=== PATIENT | female | born 1955 | race Asian ===

== ENCOUNTER 2017-02-19 18:06 | Emergency (ER) | payer OTHER ==
[~2017-02-19] VITALS: Ht 152.4 cm; Wt 59.0 kg
[2017-02-19 18:12] VITALS: Ht 152.4 cm; Wt 59.0 kg
--- NOTE | 2017-02-19 19:19 | ERA ---
ER Documentation Chief Complaint Date/Time DATE: 02/19/17 TIME: 19:19 Chief Complaint Complains of cough x 4 days Patient worried about dengue infection HPI The patient is a 61-year-old female, presenting to the ER because of intermittent cough for the last 5 days after she came back from [facility]. Her family member had dengue fever in [facility]; therefore she wanted to be checked for dengue fever. She never had any fever, denies headache, bone pain, eye pain, rash, joint pain. She denies chest pain, dyspnea, abdominal pain, vomiting, dysuria, diarrhea, constipation. She does not smoke nor drink Past medical history: Hypertension, chronic left upper extremity edema Past surgical history: Left mastectomy ROS All systems reviewed and are negative except as per history of present illness. Medications Home Meds Active Scripts Dextromethorphan Hb-Promethazine Hcl (Promethazine DM Syrup) 473 Ml Syrup, 10 ML PO Q6H Y for COUGH, #4 OZ Prov:OPAL FAIRBANKS MD 02/19/17 Azithromycin* (Zithromax*) 250 Mg Tablet, 250 MG PO .ZPACK DIRECTED, #6 TAB TAKE 500 MG (2 TABS) THE FIRST DAY THEN 250 MG (1 TAB) DAYS 2-5 Prov:OPAL FAIRBANKS MD 02/19/17 Allergies Allergies: Coded Allergies: No Known Allergy (Unverified , 02/19/17) Physical Exam Vitals Vital Signs Date Time Temp Pulse Resp B/P Pulse Ox O2 Delivery O2 Flow Rate FiO2 02/19/17 20:05 65 13 153/69 100 Room Air 02/19/17 19:44 71 22 98 21 02/19/17 19:37 60 17 188/66 100 Room Air 02/19/17 18:12 98.1 96 20 214/93 100 Physical Exam Const: No acute distress. Head: Atraumatic. Eyes: Normal Conjunctiva. ENT: Normal External Ears, Nose and Mouth. Neck: Full range of motion. No meningismus. Resp: Minimal expiratory wheezes Cardio: Regular rate and rhythm, no murmurs. Abd: Soft, non distended, normal bowel sounds, non tender. Skin: No petechiae or rashes. Back: No midline or flank tenderness. Ext: No cyanosis, or edema. Neur: Awake and alert. No focal deficit Psych: Normal Mood and Affect. Result Diagram: 02/19/17192902/19/171929 Results 24 hrs Laboratory Tests Test 02/19/17 19:30 White Blood Count 6.510^3/ul Red Blood Count 5.1410^6/ul Hemoglobin 15.7g/dl Hematocrit 47.5% Mean Corpuscular Volume 92.4fl Mean Corpuscular Hemoglobin 30.5pg Mean Corpuscular Hemoglobin Concent 33.1g/dl Red Cell Distribution Width 12.3% Platelet Count 69292^3/UL Mean Platelet Volume 10.5fl Neutrophils % 54.5% Lymphocytes % 35.8% Monocytes % 7.8% Eosinophils % 1.2% Basophils % 0.5% Nucleated Red Blood Cells % 0.0/100WBC Neutrophils # 3.510^3/ul Lymphocytes # 2.310^3/ul Monocytes # 0.510^3/ul Eosinophils # 0.110^3/ul Basophils # 0.010^3/ul Nucleated Red Blood Cells # 0.010^3/ul Prothrombin Time 11.6Sec Prothrombin Time Ratio 0.9 INR International Normalized Ratio 0.85 Activated Partial Thromboplast Time 29.6Sec Sodium Level 145mmol/L Potassium Level 3.1mmol/L Chloride Level 104mmol/L Carbon Dioxide Level 31mmol/L Anion Gap 13 Blood Urea Nitrogen 20mg/dl Creatinine 0.84mg/dl Glucose Level 121mg/dl Calcium Level 9.6mg/dl Total Bilirubin 0.3mg/dl Direct Bilirubin 0.00mg/dl Indirect Bilirubin 0.3mg/dl Aspartate Amino Transf (AST/SGOT) 46IU/L Alanine Aminotransferase (ALT/SGPT) 53IU/L Alkaline Phosphatase 134IU/L Total Protein 9.2g/dl Albumin 4.9g/dl Globulin 4.30g/dl Albumin/Globulin Ratio 1.13 Current Medications Medications (Trade) Dose Ordered Sig/[place]rera Route PRN Reason Start Time Stop Time Status Last Admin Dose Admin Ipratropium [place] (Atrovent 0.02% (Neb)) 0.5 mg ONCE ONCE INH 02/19/17 19:30 02/19/17 19:31 DC 02/19/17 19:43 Levalbuterol (Xopenex Neb) 1.25 mg ONCE ONCE HHN 02/19/17 19:30 02/19/17 19:31 DC 02/19/17 19:43 Potassium Chloride (Klor-Con 20) 40 meq ONCE STAT PO 02/19/17 20:32 02/19/17 20:33 DC Procedures/[place] [id number] Radiology Main Line: [phone] DIAGNOSTIC IMAGING REPORT Patient: DANA HYDE : 1955 Age: 61 Sex: F MR #: [id number] DOS: 02/19/171923 Ordering MD: OPAL FAIRBANKS MD Location: E/R Room/Bed: PROCEDURE: CHEST 1VW CLINICAL INDICATION: Shortness of breath TECHNIQUE: Single frontal view of the chest was obtained COMPARISON: None. FINDINGS: The cardiac size is normal. Aortic vascular calcifications are demonstrated. There is no pulmonary vascular congestion. The lungs are clear. No consolidation, effusion, or pneumothorax. Mild degenerative changes of the visualized osseous structures are visualized. IMPRESSION: 1. No acute cardiopulmonary process. 2. Atherosclerosis. RPTAT:PP .Michele Rubio MD, MD Date Time Electronically viewed and signed by .Michele Rubio MD, MD on 02/19/2017 20:28 .V/ CC: OPAL FAIRBANKS MD MEDICAL MAKING DECISION: The patient is a 61-year-old female, presenting with acute bronchitis, acute hypokalemia. She was treated with potassium chloride 40 mEq p.o. for low potassium. I do not suspect dengue fever. Her blood pressure improved The differential diagnoses considered include but are not limited to asthma, COPD, pneumonia, pulmonary embolus, pleural effusion, congestive heart failure. Departure Diagnosis: Primary Impression: Bronchitis Additional Impression: Hypokalemia Condition: Good Comments She was discharged with Zithromax and Phenergan DM I discussed the findings with the patient. I advised the patient to follow-up with the primary physician in about 1-2 days, sooner if needed and return if any concern. OPAL FAIRBANKS MD February 19, 2017 19:19
[2017-02-19] MEDS ORDERED: IPRATROPIUM (NEB) 0.5 MG/2.5 ML AMP INH ONE (19:30)
[2017-02-19] MEDS ORDERED: LEVALBUTEROL (NEB) 1.25 MG/0.5 ML AMP HHN ONE (19:30)
[2017-02-19 19:50] LABS: ADD SCAN DIFF NO
[2017-02-19 19:51] LABS: BASOPHILS % 0.5 % (0.0-2.0); EOSINOPHILS # 0.1 10^3/ul (0.0-0.5); EOSINOPHILS % 1.2 % (0.0-7.0); HEMATOCRIT 47.5 % (37.0-47.0); HEMOGLOBIN 15.7 g/dl (12.0-16.0); LYMPHOCYTES # 2.3 10^3/ul (0.8-2.9); LYMPHOCYTES % 35.8 % (15.0-51.0); MEAN CORPUSCULAR HEMOGLOBIN 30.5 pg (29.0-33.0); MEAN CORPUSCULAR HGB CONC 33.1 g/dl (32.0-37.0); MEAN CORPUSCULAR VOLUME 92.4 fl (82.0-101.0); MEAN PLATELET VOLUME 10.5 fl (7.4-10.4); MONOCYTE # 0.5 10^3/ul (0.3-0.9); MONOCYTES % 7.8 % (0.0-11.0); NEUTROPHIL # 3.5 10^3/ul (1.6-7.5); NEUTROPHILS % 54.5 % (39.0-77.0); PLATELET COUNT 222 10^3/UL (140-415); RED BLOOD COUNT 5.14 10^6/ul (4.20-5.40); RED CELL DISTRIBUTION WIDTH 12.3 % (11.5-14.5); WHITE BLOOD COUNT 6.5 10^3/ul (4.8-10.8)
[2017-02-19 20:05] VITALS: BP 153/69; PULSE 65; RESP 13
[2017-02-19 20:08] LABS: INR 0.85; PROTIME 11.6 Sec (12.2-14.2); PT RATIO 0.9
[2017-02-19 20:09] LABS: PARTIAL THROMBOPLASTIN TIME 29.6 Sec (25.0-35.0)
[2017-02-19 20:10] LABS: ALBUMIN 4.9 g/dl (3.3-4.9); POTASSIUM 3.1 mmol/L (3.5-5.1)
[2017-02-19 20:12] LABS: CREATININE 0.84 mg/dl (0.44-1.00)
[2017-02-19 20:13] LABS: ALBUMIN/GLOBULIN RATIO 1.13; BILIRUBIN,INDIRECT 0.3 mg/dl (0-1.1); BILIRUBIN,TOTAL 0.3 mg/dl (0.2-1.3); CALCIUM 9.6 mg/dl (8.4-10.2); TOTAL PROTEIN 9.2 g/dl (6.1-8.1)
--- NOTE | 2017-02-19 20:29 | RADRPT ---
PROCEDURE: CHEST 1VW CLINICAL INDICATION: Shortness of breath TECHNIQUE: Single frontal view of the chest was obtained COMPARISON: None. FINDINGS: The cardiac size is normal. Aortic vascular calcifications are demonstrated. There is no pulmonary vascular congestion. The lungs are clear. No consolidation, effusion, or pneumothorax. Mild degenerative changes of the visualized osseous structures are visualized. IMPRESSION: 1. No acute cardiopulmonary process. 2. Atherosclerosis. RPTAT:PP .Michele Rubio MD, MD Date Time Electronically viewed and signed by .Michele Rubio MD, MD on 02/19/2017 20:28 .V/
[2017-02-19] MEDS ORDERED: POTASSIUM CHLORIDE (SR) 20 MEQ TAB PO STA (20:32)
[2017-02-19] MEDS ORDERED: AZIT250T94 PO (20:34)
[2017-02-19] MEDS ORDERED: D-ME473S18 PO (20:35)
== END 2017-02-19 21:15 | disposition home or self-care (01) ==
LOC: E/R 18:06
DX: J20.9 Acute bronchitis, unspecified (principal); E87.6 Hypokalemia; I10 Essential (primary) hypertension; R06.02 Shortness of breath
CPT/HCPCS: 71010; 80053; 85025; 85610; 85730; 94664

== ENCOUNTER 2018-05-18 20:09 | Inpatient (IN) | END 2018-05-22 13:43 | disposition home or self-care (01) | DRG 293 ==